=== PATIENT | female | born 1975 | race African-American/Black ===

== ENCOUNTER 2017-09-06 13:10 | Emergency (ER) | payer BC, OTHER ==
[~2017-09-06] VITALS: Ht 162.6 cm; Wt 90.7 kg
[~2017-09-06 13:10] MED LIST: MOBIC15 MG PO; VALIUM5 MG PO
[2017-09-06 13:15] VITALS: BP 148/81
[2017-09-06] MEDS ORDERED: NORCO 5-325 TA1 EACH PO (13:51)
== END 2017-09-06 14:12 | disposition home or self-care (01) ==
LOC: ER 13:10
DX: S16.1XXA Strain of muscle, fascia and tendon at neck level, initial encounter (principal); V89.2XXA Person injured in unspecified motor-vehicle accident, traffic, initial encounter; Y93.89 Activity, other specified; Y92.89 Other specified places as the place of occurrence of the external cause; Y99.8 Other external cause status